=== PATIENT | female | born 1980 | race Caucasian/White ===

== ENCOUNTER 2018-12-21 18:25 | Emergency (ER) | payer OTHER ==
[~2018-12-21] VITALS: Ht 157.5 cm; Wt 90.0 kg
[2018-12-21] MEDS ORDERED: HYDROCODONE/ACETAMINOPHEN 5/325MG TABLET PO ONE (22:15)
[2018-12-21 23:04] VITALS: BP 138/62
== END 2018-12-21 23:12 | disposition home or self-care (01) ==
LOC: ER 18:25
DX: H66.92 Otitis media, unspecified, left ear (principal)
CPT/HCPCS: 99283